=== PATIENT | female | born 1965 | race Caucasian/White ===

== ENCOUNTER 2020-05-05 11:20 | Outpatient (CLI) | payer OTHER, SELFPAY | END 2020-05-05 11:21 | disposition home or self-care (01) | LOC: ANHCOVIDVC 11:20 | PROVIDERS: PCP Internal Medicine | DX: Z23 Encounter for immunization (principal) | CPT/HCPCS: 0001A; 91300 ==

== ENCOUNTER 2020-05-26 11:17 | Outpatient (CLI) | payer OTHER, SELFPAY | END 2020-05-26 11:18 | disposition home or self-care (01) | LOC: ANHCOVIDVC 11:17 | PROVIDERS: PCP Internal Medicine | DX: Z23 Encounter for immunization (principal) | CPT/HCPCS: 0002A; 91300 ==

== ENCOUNTER → 2021-05-03 11:17 | Outpatient (CLI) | payer OTHER, SELFPAY ==
--- NOTE | ~2021-05-03 | CT_ITS ---
EXAMINATION: CT pelvis wo con DATE: 05/03/2021 11:32 INDICATION: Left lower quadrant abdominal swelling, mass TECHNIQUE: Computed tomography (CT) of the abdomen and pelvis was performed without intravenous contr ast. Automated exposure control and iterative reconstruction technique were employed. Exam dose: 605 .91 mGy-cm total exam DLP. COMPARISON: None. FINDINGS: Normal appendix. Diverticulosis of the sigmoid colon; no CT evidence of diverticulitis. There is no evidence of bowel obstruction or intraperitoneal free air. There is fibroid change of the uterus including approximately 1.6 cm lower segment left-sided calcifi ed fibroid and approximately 2.2 cm posterosuperior noncalcified uterine fibroid. Prominent multilocular irregular up to approximately 2.6 x 6.8 cm density with variable mass soft tis raúl capsule along the lower lateral anterior left abdominal wall, possibly areas of fat necrosis, les s likely lipoma. Prominent degenerative change at the apophyseal joints in the lower lumbar and lumbosacral area. Bilateral hip osteoarthritis. IMPRESSION: Multilocular approximately 2.6 x 6.8 cm fat density with soft tissue periphery/capsule, possibly fat necrosis versus lipoma Fibroid uterus Diverticulosis of the sigmoid colon; no CT evidence of diverticulitis Reviewed, dictated and finalized at [facility]. Reviewed, dictated and finalized at [facility]. IMPRESSION: Multilocular approximately 2.6 x 6.8 cm fat density with soft tiss ue periphery/capsule, possibly fat necrosis versus lipoma Fibroid uterus Diverticulosis of the sigmoid colon; no CT evidence of diverticulitis
== END ==
PROVIDERS: PCP Physician Assistant; Visit Provider Surgery
DX: R19.04 Left lower quadrant abdominal swelling, mass and lump (principal); D25.9 Leiomyoma of uterus, unspecified; K57.30 Diverticulosis of large intestine without perforation or abscess without bleeding
CPT/HCPCS: 72192

== ENCOUNTER 2021-05-31 00:05 | Day surgery (SDC) | payer OTHER, SELFPAY ==
[2021-05-25 09:33] VITALS: BMI 28.5
--- NOTE | 2021-05-25 09:45 | PC.NURSE ---
Report to the Outpatient Waiting Room, entrance under the green pavilion located off [facility], at time 1030 on date 05/31/21. OR Time: 1230. - You and your visitor will be asked a series of questions to screen for COVID 19 for your protection. - A mask is required within the hospital. One visitor will be allowed to accompany the patient into the hospital. Patients visitor will be instructed to remain with patient at all times or leave the building. We will allow the visitor to come back to the postoperative area when patient is ready. Preoperative COVID Testing Requirements: No COVID Test needed if: (proof is required; if not received patient will have Rapid Test prior to entry) - Patient has received COVID Vaccine at least 14 days prior to procedure date or - Patient has positive COVID test result within last 90 days of surgery date. COVID Test needed if above criteria is not met Patients may have clear liquids (water, carbonated beverages, clear teas, apple juice) until 3 hours prior to surgery with a maximum of 20 ounces. - No food from midnight until time of surgery Take the following medications with a SIP of water the morning of surgery: LEXAPRO Medications to discontinue per physician: VITAMIN Date to take last dose: 05/27/21 Please no make-up, nail yi, hairspray, perfume, deodorant, or body powder the day of surgery. No jewelry (including any body piercings) or valuables the day of surgery, leave them at home. Please take a shower or bath the night before, or the morning of, surgery with an antibacterial soap. Wear comfortable, loose fitting clothing. - Jewelry must be removed prior to entering the operating room. Rings and piercings that are not removed may be cut off. - The hospital will not accept responsibility for valuables. - Please leave all valuables, including medications, at home the day of surgery. If you are going home after surgery, a licensed tow motor driver must drive you home. - NO public transportation without another adult. - We recommend that an adult stay with you for 24 hours following discharge. - We also recommend that you do not drive, make important decision, drink alcoholic beverages, or take any drugs that were not prescribed by your health care provider for at least 24 hours after your discharge time. Follow any additional instructions given to you from your surgeon. Telephone instructions given to ALEX COURTNEY and asked if any additional questions and then verbalized understanding. Patient advised to call surgeon office or pre surgery nurse liaison [phone] if any additional questions.
--- NOTE | 2021-05-31 11:38 | WPDANESEPPF ---
Anes - Initial Pre Proc Eval Procedure: Operation Date: 05/31/21 12:30 Proposed Procedures p Excision Left Lower Quadrant Abdominal Mass - Kamron Perkins DO Date/Time: 05/31/21 11:38 Surgeon: Kamron Perkins DO Pre Op Diagnosis: Lt Lower Quadrant Abd Wall Mass 7CM Patient Data Age: 55 Gender: F Height: 1.61 m Weight: 74.39 kg Allergies Allergy/AdvReac Type Severity Reaction Status Date / Time No Known Allergies Allergy Verified 05/25/21 09:32 Home Medications Medication Instructions Recorded Confirmed Type cetirizine 10 mg capsule 10 mg PO DAILY PRN 04/22/21 05/25/21 History escitalopram oxalate 20 mg tablet 20 mg PO DAILY 04/22/21 05/25/21 History cholecalciferol (vitamin D3) 125 mcg PO DAILY 05/25/21 05/25/21 History [Vitamin D3] Patient hx anesthesia problems: none Family hx anesthesia problems: none Results Review: All pre-operative results and documents have been reviewed as part of the pre-operative evaluation. [facility] Past Medical History Medical History Depression with anxiety Peptic ulcer disease Surgical History Surgical History History of delivery 1995, 1998 History of tonsillectomy 1971 Family History Family History Mother , age 69 Heart disease Diabetes mellitus Carcinoma of colon Social History Social History Smoking packs per day: 1 Smoking cigarettes per day: 20.0 Years smoked: 25 Smoking pack-years: 25.00 Smoking status: Former smoker Tobacco type: cigarettes Smoking end date: 02/20/09 Alcohol intake: current Drinks per week: 2 Alcohol use details: social Substance use: current Substance use type: marijuana Other substance usage details: ANNIE Living arrangements: with family Additional occupation/education comments: [employer] Spiritual care concerns: No Anes - Eval Final PreProcedure Day of Procedure 05/31/21 11:38 Patient weight: overweight Heart: regular rate and rhythm Lungs: clear to auscultation and normal air movement Airway: Mallampati scale class III Neurological: alert and oriented Last oral intake: >/= 8 hours ASA classification: II Emergent: no Anesthetic plan: proceed Anesthesia type and monitoring: general GIVS and standard monitoring Results Review: All pre-operative results and documents have been reviewed as part of the pre-operative evaluation. Informed Consent: The patient's anesthetic plan and its attendant risks and benefits were discussed with the patient/family/POA. Questions were solicited and answers provided to the satisfaction of the patient/family/POA.
--- NOTE | 2021-05-31 11:43 | PM.IMHP ---
H&P: HPI History of Present Illness Date/Time: 05/31/21 11:43 Chief Complaint: Left lower quadrant abdominal wall mass Narrative: This is a 55-year-old presents abdominal wall mass. She initially thought this might be a hernia and was referred for evaluation, but this appeared to have more of a soft tissue mass consistency. A CT was obtained which showed evidence of a subcutaneous soft tissue mass, but no evidence of hernia. She now presents for excision of the mass. Review of Systems Review of Systems: All systems reviewed & are unremarkable except as noted in HPI and below Constitutional: Constitutional: Denies chills, Denies fever(s), Denies headache(s) and Denies weight loss Eyes: Eyes: Denies change in vision ENT: Denies dizziness, Denies headache(s), Denies neck mass and Denies throat swelling Cardiovascular: Cardiovascular: Denies chest pain, Denies lightheadedness and Denies dyspnea Respiratory: Respiratory: Denies cough, Denies dyspnea and Denies wheezing Gastrointestinal: Gastrointestinal: Denies abdominal pain, Denies change in bowel habits, Denies nausea and Denies vomiting Genitourinary: Genitourinary: Denies hematuria and Denies dysuria Musculoskeletal: Musculoskeletal: Reports as per HPI Integumentary/Breasts: Skin/Breast: Reports as per HPI Neurologic: Denies dizziness and Denies headache(s) Allergic/Immunologic: Allergic/Immunologic: Denies throat swelling and Denies wheezing PMFSH Past Medical History Medical History Depression with anxiety Peptic ulcer disease Surgical History Surgical History History of delivery 1995, 1998 History of tonsillectomy 1972 Family History Family History Mother , age 69 Heart disease Diabetes mellitus Carcinoma of colon Social History Social History Smoking packs per day: 1 Smoking cigarettes per day: 20.0 Years smoked: 25 Smoking pack-years: 25.00 Smoking status: Former smoker Tobacco type: cigarettes Smoking end date: 02/20/09 Alcohol intake: current Drinks per week: 2 Alcohol use details: social Substance use: current Substance use type: marijuana Other substance usage details: ANNIE Living arrangements: with family Additional occupation/education comments: Mobile Mechanic Spiritual care concerns: No Meds Home Medications and Allergies Home Medications Medication Instructions Recorded Confirmed Type cetirizine 10 mg capsule 10 mg PO DAILY PRN 04/22/21 05/25/21 History escitalopram oxalate 20 mg tablet 20 mg PO DAILY 04/22/21 05/25/21 History cholecalciferol (vitamin D3) 125 mcg PO DAILY 05/25/21 05/25/21 History [Vitamin D3] Allergies Allergy/AdvReac Type Severity Reaction Status Date / Time No Known Allergies Allergy Verified 05/25/21 09:32 Exam Const: General: no acute distress and alert Orientation/consciousness: patient oriented x3 HENMT: Head: normocephalic and atraumatic Ears: hearing grossly normal bilaterally General nose exam: Normal nares present Mouth: Yes Normal oral and palatal mucosa present Eyes: Periorbital: periorbital findings normal Sclera: sclerae normal EOM: EOMs intact bilaterally Neck: Neck: normal visual inspection, no lymphadenopathy and trachea midline Chest: Chest palpation & inspection: normal inspection of the chest Resp: Effort & Inspection: normal respiratory effort Auscultation: clear to auscultation bilaterally Cardio: Jugular venous distension: no JVD Rate: regular rate Rhythm: regular rhythm Heart sounds: S1 normal heart sound present and S2 normal heart sound present Peripheral pulses: Peripheral pulses 2+ throughout GI: Inspection: normal to inspection GI Palp: Yes Soft to palpatio
[2021-05-31 11:45] VITALS: BP 130/64; PULSE 101; RESP 18; TEMP 36.8; O2SAT 98
[2021-05-31] MEDS: LACTATED RINGERS 1,000 ML 30 ML IV CONT (11:45)
--- NOTE | 2021-05-31 11:45 | WPDHPUPDATE1 ---
History and Physical Update Update Date/Time: 05/31/21 11:45 History and Physical has been reviewed, including an updated exam of the patient. There are NO changes in the patient's condition. Risks, benefits, and alternatives have been discussed and questions answered. Patient agrees to proceed with procedure.
[2021-05-31] MEDS: ceFAZolin 2 GM/D5W 50 ML 2 GM/50 ML BAG IVPB (12:07)
[2021-05-31] MEDS: LIDO 1%/EPINEPHRINE 1:100,000 50 ML VIAL INFILTRATE (12:48)
--- NOTE | 2021-05-31 12:56 | W.PM.PROC2 ---
Procedure Note - Detailed Date of Procedure 05/31/21 Pre-op Diagnosis Left lower quadrant abdominal wall mass Post-op Diagnosis Same (12 cm left lower quadrant abdominal wall mass) Procedure Performed 1. Excision of 12 cm left lower quadrant subcutaneous abdominal wall mas 2. Layered closure Surgeon Kamron Perkins DO Embossing Press Operator Apprentice Graciela Ying NP Anesthesia MAC and Local (1% lidocaine with epinephrine) Indications This is a 55-year-old woman who presented with an enlarging mass in her left lower quadrant. She thought that this might be a hernia initially, but she was not having any significant pain with physical activity. She did have some mild discomfort when area was pressed on. A CT of her pelvis was obtained and this showed evidence of a subcutaneous mass that was either fat necrosis or lipoma. Discussions were made with the patient about treatment options and decision was made to proceed with excision of the mass. Findings The left lower quadrant mass was completely excised. This appeared to be a subcutaneous lipomatous mass with some firm texture in some areas. The mass was completely excised intact and was sent to the lab for pathology. This was measuring about 12 cm wide. A layered closure was performed using 3-0 Vicryl simple interrupted sutures in Adela's fascia and 4-0 Monocryl running subcuticular suture. Description of Procedure Procedures well as risks, benefits, and alternatives were discussed with the patient. Written consent was obtained and placed in chart prior to procedure. Patient was brought back to surgical suite. She was placed supine on operating table. Time-out was done to confirm patient and procedure. IV sedation was administered by the anesthesia department. Her abdominal area was prepped and draped in sterile fashion using chlorhexidine prep. An incision was made directly over the mass using a 15 blade scalpel. Electrocautery was used for hemostasis and for dissection down through subcutaneous tissue. The mass was carefully dissected free from the surrounding subcutaneous attachments using electrocautery and the mass was completely excised and removed. It was sent to the lab for pathology. The wound bed was then inspected hemostasis was achieved with electrocautery. Careful inspection around the area was performed and no other masses were identified. Adela's fascia was then reapproximated using 3-0 Vicryl simple interrupted sutures. The skin was then approximated using a running 4-0 Monocryl subcuticular suture. Exofin glue was then applied on top. The patient was then awakened from anesthesia and transferred to recovery. Estimated Blood Loss 5 Pathology Yes (Left lower quadrant abdominal wall mass) Complications No immediate complications Disposition Same day
[2021-05-31 13:07] VITALS: BP 87/34; PULSE 93; RESP 16; O2SAT 95
[2021-05-31 13:20] VITALS: BP 100/45; PULSE 81; RESP 16; O2SAT 95
[2021-05-31 13:45] VITALS: BP 131/70; PULSE 83; RESP 16
== END 2021-05-31 14:00 | disposition home or self-care (01) ==
PROVIDERS: PCP Physician Assistant; Visit Provider Surgery
PROC: (CPT 22903; principal; 2021-05-31 12:30)
DX: K65.4 Sclerosing mesenteritis (principal); F41.8 Other specified anxiety disorders; K27.9 Peptic ulcer, site unspecified, unspecified as acute or chronic, without hemorrhage or perforation; Z87.891 Personal history of nicotine dependence; F12.90 Cannabis use, unspecified, uncomplicated
CPT/HCPCS: 22903; 88304; A9270; J0690; J1100; J2250; J2405; J2704; J3010; J7120

== ENCOUNTER → 2021-10-05 11:32 | Outpatient (CLI) | payer OTHER, SELFPAY ==
--- NOTE | ~2021-10-05 | XR_ITS ---
XR knee RT min 4V 10/05/2021 11:48 Indication: Right knee pain Procedure: 4 views right knee Comparison: No prior studies for comparison. Findings: There is anatomic alignment. No fracture, subluxation or dislocation. No joint effusion. No foreign bodies. Impression: 1: No acute bone or joint abnormality. Reviewed, dictated and finalized at location [facility]. Impression: 1: No acute bone or joint abnormality.
== END ==
PROVIDERS: PCP Physician Assistant; Visit Provider Physician Assistant
DX: M25.561 Pain in right knee (principal)
CPT/HCPCS: 73564

== ENCOUNTER 2022-03-03 08:16 | Outpatient (CLI) | payer OTHER, SELFPAY ==
--- NOTE | ~2022-03-03 | CT_ITS ---
EXAMINATION: CT soft tissue neck w con DATE: 03/03/2022 08:52 INDICATION: Neck mass. TECHNIQUE: Computed tomography (CT) of the neck was performed with 75 mL Omnipaque-350 intravenous co ntrast. Automated exposure control and iterative reconstruction technique were employed. The dose-donna gth product was 477.00 mGy-cm. COMPARISON: None FINDINGS: There is mild emphysema. There is a 3 mm nodule in right upper lobe, likely benign. The orb its are normal. There are no pathologically enlarged lymph nodes. A skin marker overlies right thyroi d lobe. Right thyroid lobe measures 6.4 x 4.2 x 2.5 cm. Left thyroid lobe measures 4.6 x 4.1 x 2.0 cm . The pharynx and larynx are normal. The major salivary glands are normal. There is severe cervical s pondylosis. IMPRESSION: 1. Enlarged thyroid. Reviewed, dictated and finalized at location [facility]. ORIGINATOR IMPRESSION: 1. Enlarged thyroid.
== END 2022-03-03 08:17 | disposition home or self-care (01) ==
PROVIDERS: PCP Family Medicine; Visit Provider Physician Assistant
DX: R22.1 Localized swelling, mass and lump, neck (principal); E04.9 Nontoxic goiter, unspecified
CPT/HCPCS: 70491; Q9967

== ENCOUNTER 2022-03-14 09:21 | Outpatient (CLI) | payer OTHER, SELFPAY ==
--- NOTE | ~2022-03-14 | US_ITS ---
EXAMINATION: US thyroid DATE: 03/14/2022 10:35 INDICATION: Nontoxic goiter, unspecified. TECHNIQUE: Multiple ultrasound images of the thyroid were obtained. COMPARISON: CT neck 03/03/2022 FINDINGS: The right thyroid lobe measures 6.1 x 3.4 x 4.0 cm. The left thyroid lobe measures 5.1 x 2.4 x 3.6 c m. The thyroid is diffusely heterogeneous and hypoechoic with increased vascularity. No discrete nod ule. IMPRESSION: 1. Heterogeneous, hypervascular thyroid, consistent with chronic lymphocytic (Kushal) thyroiditis. Because no discrete nodule was identified, the biopsy was canceled. Reviewed, dictated and finalized at location A. TANK BUILDER IMPRESSION: 1. Heterogeneous, hypervascular thyroid, consistent with chronic lymphocytic (H ashimoto) thyroiditis. Because no discrete nodule was identified, the biopsy wa s canceled.
== END 2022-03-14 09:22 | disposition home or self-care (01) ==
PROVIDERS: PCP Family Medicine; Visit Provider Physician Assistant
DX: E07.9 Disorder of thyroid, unspecified (principal); E04.9 Nontoxic goiter, unspecified
CPT/HCPCS: 76536